=== PATIENT | male | born 1935 | race Caucasian/White ===

== ENCOUNTER 2016-10-20 10:00 | Outpatient (CLI) | payer MEDICARE, BC ==
[2016-10-20 11:36] LABS: Anion Gap 14 mmol/L (10-20); BUN (Urea Nitrogen) 12 mg/dL (8.4-25.7); Calc. Creatinine Clearance 0 mL/min (70-130); Calcium 9.3 mg/dL (7.8-10.44); Carbon Dioxide 27 mmol/L (23-31); Chloride 103 mmol/L (98-107); Estimated GFR-MDRD 90; LDL Cholesterol, Calculated 140 mg/dL
[2016-10-20 11:47] LABS: Hemoglobin A1c 5.8 % (4.0-6.0)
[2016-10-20 12:07] LABS: #Eosinphils 0.2 thou/uL (0.0-0.7); #Lymphocytes 2.3 thou/uL (1.20-3.40); #Monocytes 0.5 thou/uL (0.11-0.59); #Neutrophils 3.9 thou/uL (1.40-6.50); %Basophils 0.7 % (0.0-1.0); %Eosinophils 2.8 % (0.0-10.0); %Lymphocytes 33.5 % (21.0-51.0); %Monocytes 6.9 % (0.0-10.0); Hematocrit 39.9 % (42.0-52.0); Mean Platelet Volume 5.5 fL (7.4-10.4); Red Blood Cell (RBC) Count 4.85 mill/uL (4.70-6.10)
[2016-10-20 12:09] LABS: Anisocytosis SLIGHT = 6-15 cells (100X) (0-5/hpf)
== END 2016-10-20 10:01 ==
LOC: NAVSJIPCSP 10:00
PROVIDERS: ATTEND Nurse Practitioner Family
DX: E11.9 Type 2 diabetes mellitus without complications (principal); E78.5 Hyperlipidemia, unspecified; I10 Essential (primary) hypertension; E03.9 Hypothyroidism, unspecified; G47.00 Insomnia, unspecified; C61 Malignant neoplasm of prostate
CPT/HCPCS: 36415; 80048; 80061; 83036; 85025

== ENCOUNTER 2017-02-16 08:40 | Outpatient (CLI) | payer MEDICARE, BC ==
[2017-02-16 12:28] LABS: #Eosinphils 0.2 thou/uL (0.0-0.7); #Lymphocytes 2.6 thou/uL (1.20-3.40); #Monocytes 0.4 thou/uL (0.11-0.59); %Basophils 0.7 % (0.0-1.0); %Eosinophils 2.7 % (0.0-10.0); %Lymphocytes 41.1 % (21.0-51.0); %Monocytes 6.7 % (0.0-10.0); %Neutrophils 48.8 % (42.0-75.0); Hemoglobin 14.3 g/dL (14.0-18.0); Mean Corpuscular HGB CONC 31.6 g/dL (32.0-36.0); Mean Corpuscular Hemoglobin 27.9 pg (27.0-31.0); Mean Corpuscular Volume 88.2 fl (80.0-94.0); Mean Platelet Volume 5.6 fL (7.4-10.4); Platelet Count 219 thou/uL (130-400); RBC Distribution Width 15.4 % (11.5-14.5); Red Blood Cell (RBC) Count 5.14 mill/uL (4.70-6.10); White Blood Cell (WBC) Count 6.2 thou/uL (4.8-10.8)
[2017-02-16 12:48] LABS: Hemoglobin A1c 5.7 % (4.0-6.0)
[2017-02-16 14:15] LABS: Anion Gap 14 mmol/L (10-20); BUN (Urea Nitrogen) 12 mg/dL (8.4-25.7); Calc. Creatinine Clearance 0 mL/min (70-130); Calcium 9.5 mg/dL (7.8-10.44); Carbon Dioxide 29 mmol/L (23-31); Cardiac Risk 4.2 (Less than 4.5); Chloride 104 mmol/L (98-107); Cholesterol 224 mg/dL (< 200 Desired); Estimated GFR-MDRD 89; Glucose 89 mg/dL (83-110); HDL Cholesterol 53 mg/dL (>60 Neg Risk); LDL Cholesterol, Calculated 135 mg/dL; Potassium 3.9 mmol/L (3.5-5.1); Sodium 143 mmol/L (136-145); Triglycerides 180 mg/dL (Less than 150)
[2017-02-17 09:14] LABS: PSA-Asymptomatic (SCREENING) 0.63 ng/mL (0-4.0); Thyroid Stimulating Hormone 0.4928 uIU/mL (0.35-4.94)
[2017-02-17 09:21] LABS: ALT (SGPT) 17 U/L (8-55); AST (SGOT) 25 U/L (5-34); Alkaline Phosphatase 57 U/L (40-150); Bilirubin, Direct 0.1 mg/dL (0.1-0.3); Bilirubin, Total 0.3 mg/dL (0.2-1.2); Protein, Total 6.8 g/dL (5.8-8.1)
== END 2017-02-16 08:41 | disposition home or self-care (01) ==
LOC: NAVSJIPCSP 08:40
PROVIDERS: ATTEND Nurse Practitioner Family
DX: E11.9 Type 2 diabetes mellitus without complications (principal); E78.5 Hyperlipidemia, unspecified; I10 Essential (primary) hypertension; E03.9 Hypothyroidism, unspecified; G47.00 Insomnia, unspecified; C61 Malignant neoplasm of prostate
CPT/HCPCS: 36415; 80048; 80061; 80076; 83036; 84443; 85025; G0103

== ENCOUNTER 2017-06-21 09:56 | Outpatient (CLI) | payer MEDICARE, BC ==
[2017-06-21 12:49] LABS: ALT (SGPT) 25 U/L (8-55); AST (SGOT) 28 U/L (5-34); Alkaline Phosphatase 60 U/L (40-150); Anion Gap 15 mmol/L (10-20); BUN (Urea Nitrogen) 11 mg/dL (8.4-25.7); Bilirubin, Direct 0.1 mg/dL (0.1-0.3); Bilirubin, Total 0.4 mg/dL (0.2-1.2); Calc. Creatinine Clearance 0 mL/min (70-130); Calcium 9.6 mg/dL (7.8-10.44); Carbon Dioxide 29 mmol/L (23-31); Chloride 102 mmol/L (98-107); Cholesterol 222 mg/dl (< 200 Desired); Estimated GFR-MDRD Greater than 90; Glucose 89 mg/dL (83-110); HDL Cholesterol 55 mg/dL (>60 Neg Risk); LDL Cholesterol, Calculated 134 mg/dL; Potassium 4.4 mmol/L (3.5-5.1); Protein, Total 6.6 g/dL (5.8-8.1); Sodium 142 mmol/L (136-145); Triglycerides 166 mg/dL (Less than 150)
[2017-06-21 13:00] LABS: #Eosinphils 0.2 thou/uL (0.0-0.7); #Lymphocytes 2.7 thou/uL (1.20-3.40); #Monocytes 0.5 thou/uL (0.11-0.59); #Neutrophils 3.1 thou/uL (1.40-6.50); %Basophils 0.5 % (0.0-1.0); %Lymphocytes 41.4 % (21.0-51.0); %Monocytes 7.3 % (0.0-10.0); %Neutrophils 47.8 % (42.0-75.0); Mean Corpuscular HGB CONC 32.7 g/dL (32.0-36.0); Mean Corpuscular Volume 91.8 fl (80.0-94.0); Mean Platelet Volume 5.4 fL (7.4-10.4); Platelet Count 222 thou/uL (130-400); RBC Distribution Width 12.1 % (11.5-14.5); Red Blood Cell (RBC) Count 4.98 mill/uL (4.70-6.10); White Blood Cell (WBC) Count 6.4 thou/uL (4.8-10.8)
[2017-06-21 13:25] LABS: Hemoglobin A1c 5.7 % (4.0-6.0)
== END 2017-06-21 09:57 | disposition home or self-care (01) ==
LOC: NAVSJIPCSP 09:56
PROVIDERS: ATTEND Family Medicine
DX: E78.5 Hyperlipidemia, unspecified (principal); E11.9 Type 2 diabetes mellitus without complications; I10 Essential (primary) hypertension; E03.9 Hypothyroidism, unspecified; G47.00 Insomnia, unspecified; C61 Malignant neoplasm of prostate; G25.81 Restless legs syndrome; D50.9 Iron deficiency anemia, unspecified
CPT/HCPCS: 36415; 80048; 80061; 80076; 83036; 84443; 85025

== ENCOUNTER 2017-09-25 07:09 | Emergency (ER) | payer MEDICARE, BC ==
[2017-09-25] MEDS ORDERED: Dexamethasone 4 mg/ml Vial ONE (07:44)
== END 2017-09-25 08:01 | disposition home or self-care (01) ==
LOC: NAV ERS 07:09
DX: M54.32 Sciatica, left side (principal); I10 Essential (primary) hypertension; E11.9 Type 2 diabetes mellitus without complications; E03.9 Hypothyroidism, unspecified; E78.5 Hyperlipidemia, unspecified; Z79.899 Other long term (current) drug therapy
CPT/HCPCS: 36416; 96372; J1100

== ENCOUNTER 2022-08-13 08:22 | Emergency (ER) | payer MEDICARE, BC | END 2022-08-13 10:20 | disposition home or self-care (01) | LOC: NAV ERS 08:22 | DX: J20.9 Acute bronchitis, unspecified (principal); J06.9 Acute upper respiratory infection, unspecified; E03.9 Hypothyroidism, unspecified; E78.5 Hyperlipidemia, unspecified; E11.9 Type 2 diabetes mellitus without complications; I10 Essential (primary) hypertension | CPT/HCPCS: 87081; 87430; 99283 ==